=== PATIENT | female | born 1990 | race Caucasian/White ===

== ENCOUNTER 2017-03-01 01:43 | Emergency (ER) | payer MEDICAID ==
[~2017-03-01] VITALS: Ht 154.9 cm; Wt 82.0 kg
[2017-03-01 01:45] VITALS: BP 151/104; PULSE 85; RESP 18; TEMP 97.7; O2SAT 100
[2017-03-01 02:54] LABS: AUTOMATED NEUTROPHIL # 3.2 TH/MM3 (1.8-7.7); BASOPHIL % 0.6 % (0.0-2.0); EOSINOPHIL # 0.3 TH/MM3 (0-0.4); EOSINOPHIL % 4.2 % (0.0-4.0); HEMATOCRIT 36.7 % (35.0-46.0); HEMO FLAGS DIFF FINAL; LYMPH % 36.2 % (9.0-44.0); LYMPHOCYTE # 2.3 TH/MM3 (1.0-4.8); MEAN CELL VOLUME 90.8 FL (80.0-100.0); MEAN CORPUSCULAR HEMOGLOBIN 32.3 PG (27.0-34.0); MEAN CORPUSCULAR HGB CONC 35.6 % (32.0-36.0); MONO % 7.5 % (0.0-8.0); NEUT % 51.5 % (16.0-70.0); PLATELET COUNT 264 TH/MM3 (150-450); RED BLOOD COUNT 4.04 MIL/MM3 (4.00-5.30); RED CELL DISTRIBUTION WIDTH 12.8 % (11.6-17.2); WHITE BLOOD COUNT 6.3 TH/MM3 (4.0-11.0)
[2017-03-01 03:03] LABS: BLOOD, URINE MOD (NEG); COMMENT (UR) CULT NOT INDICATED; CULTURE IF INDICATED CULT NOT INDICATED; GLUCOSE,URINE NEG (NEG); KETONE, URINE NEG (NEG); MUCUS URINE FEW /lpf (OCC); NITRITE,URINE NEG (NEG); SQUAMOUS EPITHELIAL CELL URINE 7 /hpf (0-5); URINE COLOR YELLOW (YELLW/STRAW)
[2017-03-01 03:21] LABS: ANION GAP 7 MEQ/L (5-15); AST (GOT) 22 U/L (15-37); BICARBONATE 27.2 MEQ/L (21.0-32.0); BLOOD UREA NITROGEN 11 MG/DL (7-18); CHLORIDE 106 MEQ/L (98-107); GLOMERULAR FILTRATION RATE 101 ML/MIN (>89); POTASSIUM 3.8 MEQ/L (3.5-5.1); SODIUM (NA) 140 MEQ/L (136-145)
[2017-03-01] MEDS ORDERED: SODIUM CHLOR 0.9% 1000 ML INJ 1,000 ML IV SCH (03:23)
[2017-03-01 03:24] LABS: ALKALINE PHOSPHATASE 99 U/L (45-117); ALT (GPT) 44 U/L (10-53); TOTAL BILIRUBIN ADULT 0.3 MG/DL (0.2-1.0)
[2017-03-01] MEDS ORDERED: ONDANSETRON HCL 4 MG/2 ML VIAL IVP ONE (03:30)
[2017-03-01] MEDS ORDERED: SODIUM CHLORIDE 0.9% FLUSH 10 ML FLUSH IV FLUSH PRN (03:30)
[2017-03-01] MEDS ORDERED: MORPHINE SULFATE 4 MG/ML INJ IV PUSH ONE (03:30)
--- NOTE | 2017-03-01 03:40 | PD ---
HPI Chief Complaint: Flank/Kidney Pain Time Seen by Provider: 03:18 Travel History International Travel<30 days: No Contact w/Intl Traveler<30days: No Traveled to known affect area: No History of Present Illness HPI Patient is a 26 year old female who presents to ER with c/o of flank pain. Patient reports that she woke up from sleep and began to have left sided flank pain. Reports that she is unable to get comfortable due to her pain. Denies fever/chills. No history of kidney stones in the past PFSH Past Medical History Medical History: Denies Significant Hx Tetanus Vaccination: Never Vaccinated Influenza Vaccination: No ?: Not LMP: TUBAL Tubal Ligation: Yes Past Surgical History Section: Yes (X3) Social History Alcohol Use: No Tobacco Use: No Substance Use: No Allergies-Medications (Allergen,Severity, Reaction): Coded Allergies: Cytotec (Verified Allergy, Severe, SEIZURES FEVER, 03/01/17) Reported Meds & Prescriptions Reported Meds & Active Scripts Active Flomax (Tamsulosin HCl) 0.4 Mg Cap 0.4 Mg PO HS Percocet (Oxycodone-Acetaminophen) 5-325 mg Tab 1-2 Tab PO Q6H PRN Ibuprofen 600 Mg Tab 600 Mg PO Q6H PRN Review of Systems General / Constitutional: No: Fever Eyes: No: Visual changes HENT: No: Headaches Cardiovascular: No: Chest Pain or Discomfort Respiratory: No: Shortness of Breath Gastrointestinal: Positive: Nausea, Vomiting, No: Abdominal Pain Genitourinary: Positive: Flank Pain, No: Dysuria Musculoskeletal: No: Pain Skin: No Rash Neurologic: No: Weakness Psychiatric: No: Depression Endocrine: No: Polydipsia Hematologic/Lymphatic: No: Easy Bruising Physical Exam Narrative GENERAL: Moderate distress SKIN: Focused skin assessment warm/dry. HEAD: Atraumatic. Normocephalic. EYES: Pupils equal and round. No scleral icterus. No injection or drainage. ENT: No nasal bleeding or discharge. Mucous membranes pink and moist. NECK: Trachea midline. No JVD. CARDIOVASCULAR: Regular rate and rhythm. No murmur appreciated. RESPIRATORY: No accessory muscle use. Clear to auscultation. Breath sounds equal bilaterally. GASTROINTESTINAL: Abdomen soft, non-tender, nondistended. Patient with left- sided flank pain MUSCULOSKELETAL: No obvious deformities. No clubbing. No cyanosis. No edema. NEUROLOGICAL: Awake and alert. . Normal speech. PSYCHIATRIC: Appropriate mood and affect; insight and judgment normal. Data Data Last Documented VS Vital Signs Date Time Temp Pulse Resp B/P Pulse Ox O2 Delivery O2 Flow Rate FiO2 03/01/17 01:45 97.7 85 18 151/104 100 Room Air Orders Urinalysis - C+S If Indicated (03/01/17 01:48) Complete Blood Count With Diff (03/01/17 02:40) Comprehensive Metabolic Panel (03/01/17 02:40) Iv Access Insert/Monitor (03/01/17 02:40) Oxygen Administration (03/01/17 02:40) Oximetry (03/01/17 02:40) Lipase (03/01/17 02:40) Ct Abd/Pel W/O Iv Contrast (03/01/17 03:23) Morphine Inj (Morphine Inj) (03/01/17 03:30) Ondansetron Inj (Zofran Inj) (03/01/17 03:30) Sodium Chlor 0.9% 1000 Ml Inj (Ns 1000 M (03/01/17 03:23) Sodium Chloride 0.9% Flush (Ns Flush) (03/01/17 03:30) Ketorolac Inj (Toradol Inj) (03/01/17 04:45) Strain Urine PRN (03/01/17 05:47) Tamsulosin (Flomax) (03/01/17 06:00) Labs Laboratory Tests Test 03/01/17 03/01/17 02:30 02:40 Urine Color YELLOW Urine Turbidity CLOUDY Urine pH 8.0 Urine Specific [place] 1.018 Urine Protein TRACE mg/dL Urine Glucose (UA) NEG mg/dL Urine Ketones NEG mg/dL Urine Occult Blood MOD Urine Nitrite NEG Urine Bilirubin NEG Urine Urobilinogen LESS THAN 2.0 MG/DL Urine Leukocyte Esterase NEG Urine RBC /hpf Urine WBC 1 /hpf Urine Squamous Epithelial 7 /hpf Cells Urine Amorphous Sediment OCC Urine Mucus FEW /lpf Microscopic Urinalysis Comment CULT NOT INDICATED White Blood Count 6.3 TH/MM3 Red Blood Count 4.04 MIL/MM3 Hemoglobin 13.1 GM/DL Hematocrit 36.7 % Mean Corpuscular Volume 90.8 FL Mean Corpuscular Hemoglobin 32.3 PG Mean Corpuscular Hemoglobin 35.6 % Concent Red Cell Distribution Width 12.8 % Platelet Count 264 TH/MM3 Mean Platelet Volume 7.2 FL Neutrophils (%) (Auto) 51.5 % Lymphocytes (%) (Auto) 36.2 % Monocytes (%) (Auto) 7.5 % Eosinophils (%) (Auto) 4.2 % Basophils (%) (Auto) 0.6 % Neutrophils # (Auto) 3.2 TH/MM3 Lymphocytes # (Auto) 2.3 TH/MM3 Monocytes # (Auto) 0.5 TH/MM3 Eosinophils # (Auto) 0.3 TH/MM3 Basophils # (Auto) 0.0 TH/MM3 CBC Comment DIFF FINAL Differential Comment Sodium Level 140 MEQ/L Potassium Level 3.8 MEQ/L Chloride Level 106 MEQ/L Carbon Dioxide Level 27.2 MEQ/L Anion Gap 7 MEQ/L Blood Urea Nitrogen 11 MG/DL Creatinine 0.69 MG/DL Estimat Glomerular Filtration 101 ML/MIN Rate Random Glucose 93 MG/DL Calcium Level 9.2 MG/DL Total Bilirubin 0.3 MG/DL Aspartate Amino Transf 22 U/L (AST/SGOT) Alanine Aminotransferase 44 U/L (ALT/SGPT) Alkaline Phosphatase 99 U/L Total Protein 7.3 GM/DL Albumin 3.8 GM/DL Lipase 192 U/L MDM Medical Decision Making Medical Screen Exam Complete: Yes Emergency Medical Condition: Yes Interpretation(s) Vital Signs Date Time Temp Pulse Resp B/P Pulse Ox O2 Delivery O2 Flow Rate FiO2 03/01/17 01:45 97.7 85 18 151/104 100 Room Air Laboratory Tests Test 03/01/17 03/01/17 02:30 02:40 Urine Color YELLOW (YELLW/STRAW) Urine Turbidity CLOUDY (CLEAR) Urine pH 8.0 (5.0-8.5) Urine Specific [place] 1.018 (1.002-1.035) Urine Protein TRACE mg/dL (NEG-TRACE) Urine Glucose (UA) NEG mg/dL (NEG) Urine Ketones NEG mg/dL (NEG) Urine Occult Blood MOD (NEG) Urine Nitrite NEG (NEG) Urine Bilirubin NEG (NEG) Urine Urobilinogen LESS THAN 2.0 MG/DL (LESS THAN 2.0) Urine Leukocyte Esterase NEG (NEG) Urine RBC /hpf (0-3) Urine WBC 1 /hpf (0-5) Urine Squamous Epithelial 7 /hpf (0-5) Cells Urine Amorphous Sediment OCC Urine Mucus FEW /lpf (OCC) Microscopic Urinalysis Comment CULT NOT INDICATED White Blood Count 6.3 TH/MM3 (4.0-11.0) Red Blood Count 4.04 MIL/MM3 (4.00-5.30) Hemoglobin 13.1 GM/DL (11.6-15.3) Hematocrit 36.7 % (35.0-46.0) Mean Corpuscular Volume 90.8 FL (80.0-100.0) Mean Corpuscular Hemoglobin 32.3 PG (27.0-34.0) Mean Corpuscular Hemoglobin 35.6 % Concent (32.0-36.0) Red Cell Distribution Width 12.8 % (11.6-17.2) Platelet Count 264 TH/MM3 (150-450) Mean Platelet Volume 7.2 FL (7.0-11.0) Neutrophils (%) (Auto) 51.5 % (16.0-70.0) Lymphocytes (%) (Auto) 36.2 % (9.0-44.0) Monocytes (%) (Auto) 7.5 % (0.0-8.0) Eosinophils (%) (Auto) 4.2 % (0.0-4.0) Basophils (%) (Auto) 0.6 % (0.0-2.0) Neutrophils # (Auto) 3.2 TH/MM3 (1.8-7.7) Lymphocytes # (Auto) 2.3 TH/MM3 (1.0-4.8) Monocytes # (Auto) 0.5 TH/MM3 (0-0.9) Eosinophils # (Auto) 0.3 TH/MM3 (0-0.4) Basophils # (Auto) 0.0 TH/MM3 (0-0.2) CBC Comment DIFF FINAL Differential Comment Sodium Level 140 MEQ/L (136-145) Potassium Level 3.8 MEQ/L (3.5-5.1) Chloride Level 106 MEQ/L (98-107) Carbon Dioxide Level 27.2 MEQ/L (21.0-32.0) Anion Gap 7 MEQ/L (5-15) Blood Urea Nitrogen 11 MG/DL (7-18) Creatinine 0.69 MG/DL (0.50-1.00) Estimat Glomerular Filtration 101 ML/MIN Rate (>89) Random Glucose 93 MG/DL (74-106) Calcium Level 9.2 MG/DL (8.5-10.1) Total Bilirubin 0.3 MG/DL (0.2-1.0) Aspartate Amino Transf 22 U/L (15-37) (AST/SGOT) Alanine Aminotransferase 44 U/L (10-53) (ALT/SGPT) Alkaline Phosphatase 99 U/L (45-117) Total Protein 7.3 GM/DL (6.4-8.2) Albumin 3.8 GM/DL (3.4-5.0) Lipase 192 U/L (73-393) Differential Diagnosis Pyelonephritis, kidney stone, cystitis, muscle strain Narrative Course Patient is a 26-year-old female who presents to emergency room with complaints of left-sided flank pain which began around 1:00 AM this morning. Patient with no history of kidney stones in the past. Patient uncomfortable on exam. ct abdomen/pelvis ordered to evaluate for possible kidney stone vs pyelonephritis CBC & BMP Diagram 03/01/17 02:40 Last Impressions Abdomen/Pelvis CT 03/01/17 0323 Signed Impressions: Service Date/Time: February 04:29 - CONCLUSION: 1. Obstructive uropathy on the left secondary to a 5 mm left ureteropelvic junction calculus causing moderate hydronephrosis. 2. 2 nonobstructing left-sided lower pole calculi measuring 3 and 6 mm. 3. Large left ovarian cyst measures 5.4 x 5.2 cm. Followup pelvic sonogram recommended. Eric Gomez MD Patient re-evaluated, patient feeling much better at this time. Reviewed all labs and studies with patient in detail. A copy of her ct was given to her as all incidental findings were reviewed in detail with her. Signs and symptoms of when to return to ER was reviewed with patient in detail. She will strain her urine and will return to ER if she develops fever/chills or worsening symptoms. Diagnosis Primary Impression: Kidney calculus Additional Impressions: Kidney stone on left side Hydronephrosis Qualified Code: Q62.0 - Hydronephrosis with ureteropelvic junction (UPJ) obstruction Hematuria Referrals: Nazario Templeton MD Patient Instructions: General Instructions, Narcotic given in the ED Additional Instructions: Please call urologist first thing in the morning for earliest follow-up appointment Please strain your urine, bring your kidney stone to your doctor's office for workup of stone Please follow-up with cultures from today Return to the emergency room if symptoms progress or worsen or if you develop fevers or chills Do not drive while taking narcotic pain medications Please bring the CT report to your doctor's office for follow up on all findings and incidental studies from today Med/Other Pt SpecificInfo: Prescription(s) given Scripts Tamsulosin (Flomax)0.4 Mg Cap0.4 Mg PO HS #10 CAP Ref 0 Prov:Soraida Poe DO 03/01/17 Oxycodone-Acetaminophen (Percocet)5-325 mg Tab1-2 Tab PO Q6H PRN (PAIN) #15 TAB Ref 0 Prov:Soraida Poe DO 03/01/17 Ibuprofen 600 Mg Deb810 Mg PO Q6H PRN (Pain/Inflammation) #40 TAB Ref 0 Prov:Soraida Poe DO 03/01/17 Disposition: 01 DISCHARGE HOME Condition: Stable Soraida Poe DO Mar 01, 2017 03:40
[2017-03-01] MEDS ORDERED: KETOROLAC TROMETHAMINE 30 MG/ML (IVP) VIAL IV PUSH ONE (04:45)
--- NOTE | 2017-03-01 04:45 | RADRPT ---
EXAM DATE/TIME: 03/01/2017 04:29 [facility] COMPARISON: No previous studies available for comparison. INDICATIONS : Left flank and back pain. ORAL CONTRAST: No oral contrast ingested. RADIATION DOSE: 8.51 CTDIvol (mGy) MEDICAL HISTORY : None SURGICAL HISTORY : Tubal ligation. section. ENCOUNTER: Initial ACUITY: 1 day PAIN SCALE: 6/10 LOCATION: Left flank TECHNIQUE: Volumetric scanning of the abdomen and pelvis was performed. Using automated exposure control and ad justment of the mA and/or kV according to patient size, radiation dose was kept as low as reasonably achievable to obtain optimal diagnostic quality images. FINDINGS: LOWER LUNGS: The visualized lower lungs are clear. LIVER: Homogeneous density without lesion. There is no dilation of the biliary tree. No calcified gallston es. SPLEEN: Normal size without lesion. PANCREAS: Within normal limits. KIDNEYS: Normal in size and shape. There is no mass, stone, or hydronephrosis on the right. Left ureteropelvi c junction obstructing calculus measures 5 mm. This is causes moderate hydronephrosis. There are 2 no nobstructing calculi in the lower pole left kidney measuring 3 and 6 mm.. ADRENAL GLANDS: Within normal limits. VASCULAR: There is no aortic aneurysm. BOWEL/MESENTERY: The stomach, small bowel, and colon demonstrate no acute abnormality. There is no free intraperitone al air or fluid. ABDOMINAL WALL: Within normal limits. RETROPERITONEUM: There is no lymphadenopathy. BLADDER: No wall thickening or mass. REPRODUCTIVE: Left ovarian cyst measures 5.4 x 5.2 cm. Clips in the pelvis likely bilateral tubal ligation. INGUINAL: There is no lymphadenopathy or hernia. MUSCULOSKELETAL: Within normal limits for patient age. CONCLUSION: 1. Obstructive uropathy on the left secondary to a 5 mm left ureteropelvic junction calculus causing moderate hydronephrosis. 2. 2 nonobstructing left-sided lower pole calculi measuring 3 and 6 mm. 3. Large left ovarian cyst measures 5.4 x 5.2 cm. Followup pelvic sonogram recommended. Eric Gomez MD on March 01, 2017 at 4:40 Board Certified Radiologist. This report was verified electronically.
[2017-03-01] MEDS ORDERED: IBUP-232 PO (05:55)
[2017-03-01] MEDS ORDERED: TAMS5CAP PO (05:55)
[2017-03-01] MEDS ORDERED: PERC5TAB12 PO (05:55)
[2017-03-01] MEDS ORDERED: TAMSULOSIN HCL 0.4 MG CAP PO ONE (06:00)
[2017-03-01 06:22] VITALS: BP 142/80
[2017-03-02] MEDS ORDERED: CEPH-460 PO (10:17)
== END 2017-03-01 06:28 | disposition home or self-care (01) ==
LOC: NEPE 01:43
DX: N13.2 Hydronephrosis with renal and ureteral calculous obstruction (principal); R31.9 Hematuria, unspecified; N83.202 Unspecified ovarian cyst, left side
CPT/HCPCS: 74176; 80053; 81001; 83690; 85025; 96374; 96375; 99284; J1885; J2270; J2405; J7030

== ENCOUNTER 2017-03-02 08:14 | Emergency (ER) | payer MEDICAID ==
[~2017-03-02] VITALS: Ht 154.9 cm; Wt 85.0 kg
[~2017-03-02 08:14] MED LIST: IBUP-232 PO; PERC5TAB12 PO; TAMS5CAP PO
[2017-03-02 08:15] VITALS: BP 129/96; PULSE 110; RESP 16; TEMP 99.5; O2SAT 98
--- NOTE | 2017-03-02 09:07 | PD ---
HPI Chief Complaint: Flank/Kidney Pain Time Seen by Provider: 09:00 Travel History International Travel<30 days: No Contact w/Intl Traveler<30days: No Traveled to known affect area: No History of Present Illness HPI This is a 26-year-old female who presents to the emergency department with 2 days of left flank pain, intermittent, worse with walking, improved with rest, sharp and stabbing, with one episode of vomiting yesterday. She was seen in the emergency department yesterday and diagnosed with an obstructing kidney stone. She was discharged on pain control but returns today because she spiked a temperature to 100.5 and has had some fevers and chills. Her doctor yesterday told her to return to the emergency department if she developed fever. PFSH Past Medical History Diminished Hearing: No Genitourinary: Yes Kidney Stones: Yes Tetanus Vaccination: > 5 Years Influenza Vaccination: No ?: Not LMP: JANUARY 2017 Tubal Ligation: Yes Past Surgical History Section: Yes (X3) Gynecologic Surgery: Yes Social History Alcohol Use: No Tobacco Use: No Substance Use: No Allergies-Medications (Allergen,Severity, Reaction): Coded Allergies: Cytotec (Verified Allergy, Severe, SEIZURES FEVER, 03/02/17) Reported Meds & Prescriptions Reported Meds & Active Scripts Active Flomax (Tamsulosin HCl) 0.4 Mg Cap 0.4 Mg PO HS Percocet (Oxycodone-Acetaminophen) 5-325 mg Tab 1-2 Tab PO Q6H PRN Ibuprofen 600 Mg Tab 600 Mg PO Q6H PRN Review of Systems Except as stated in HPI: all other systems reviewed are Neg Physical Exam Narrative GENERAL:Well appearing, no acute distress SKIN: Focused skin assessment warm and dry. HEAD: Atraumatic. Normocephalic. EYES: Pupils equal and round. No injection or drainage. ENT: Moist mucous membranes NECK: Trachea midline. CARDIOVASCULAR: Regular rate and rhythm. No murmur appreciated. RESPIRATORY: Clear to auscultation. Breath sounds equal bilaterally. GASTROINTESTINAL: Abdomen soft, non-tender, nondistended. MUSCULOSKELETAL: No obvious deformities. NEUROLOGICAL: Awake and alert. No obvious cranial nerve deficits. Moving all extremities. PSYCHIATRIC: Appropriate mood and affect; insight and judgment normal. Data Data Last Documented VS Vital Signs Date Time Temp Pulse Resp B/P Pulse Ox O2 Delivery O2 Flow Rate FiO2 03/02/17 09:27 17 03/02/17 08:15 99.5 110 129/96 98 Room Air Orders Complete Blood Count With Diff (03/02/17 09:07) Basic Metabolic Panel (Bmp) (03/02/17 09:07) Urinalysis - C+S If Indicated (03/02/17 09:07) ^ Insert Iv (03/02/17 09:07) Morphine Inj (Morphine Inj) (03/02/17 09:15) Ondansetron Inj (Zofran Inj) (03/02/17 09:15) Sodium Chlor 0.9% 1000 Ml Inj (Ns 1000 M (03/02/17 09:15) Lactic Acid (03/02/17 09:07) Labs Laboratory Tests Test 03/02/17 09:00 White Blood Count 8.9 TH/MM3 Red Blood Count 3.73 MIL/MM3 Hemoglobin 11.9 GM/DL Hematocrit 34.3 % Mean Corpuscular Volume 92.1 FL Mean Corpuscular Hemoglobin 32.0 PG Mean Corpuscular Hemoglobin 34.7 % Concent Red Cell Distribution Width 12.7 % Platelet Count 222 TH/MM3 Mean Platelet Volume 7.6 FL Neutrophils (%) (Auto) 79.0 % Lymphocytes (%) (Auto) 13.8 % Monocytes (%) (Auto) 6.1 % Eosinophils (%) (Auto) 0.8 % Basophils (%) (Auto) 0.3 % Neutrophils # (Auto) 7.0 TH/MM3 Lymphocytes # (Auto) 1.2 TH/MM3 Monocytes # (Auto) 0.5 TH/MM3 Eosinophils # (Auto) 0.1 TH/MM3 Basophils # (Auto) 0.0 TH/MM3 CBC Comment DIFF FINAL Differential Comment Urine Color LIGHT-YELLOW Urine Turbidity CLEAR Urine pH 7.5 Urine Specific [place] 1.005 Urine Protein NEG mg/dL Urine Glucose (UA) NEG mg/dL Urine Ketones NEG mg/dL Urine Occult Blood NEG Urine Nitrite NEG Urine Bilirubin NEG Urine Urobilinogen LESS THAN 2.0 MG/DL Urine Leukocyte Esterase NEG Urine RBC 2 /hpf Urine WBC 2 /hpf Urine Squamous Epithelial 1 /hpf Cells Urine Bacteria OCC /hpf Microscopic Urinalysis Comment CULT NOT INDICATED Sodium Level 139 MEQ/L Potassium Level 3.9 MEQ/L Chloride Level 107 MEQ/L Carbon Dioxide Level 25.7 MEQ/L Anion Gap 6 MEQ/L Blood Urea Nitrogen 6 MG/DL Creatinine 0.64 MG/DL Estimat Glomerular Filtration 110 ML/MIN Rate Random Glucose 87 MG/DL Lactic Acid Level 1.4 mmol/L Calcium Level 8.8 MG/DL [facility] Medical Decision Making Medical Screen Exam Complete: Yes Emergency Medical Condition: Yes Interpretation(s) temperature is 99.5, tachycardic no leukocytosis electrolytes within normal limits urinalysis negative for infection Differential Diagnosis Infected stone, pyelonephritis, obstructive uropathy, viral syndrome Narrative Course This is a 18-year-old female who presents to the emergency department having been diagnosed with an obstructing stone yesterday in the emergency department. She has a 5 mm stone at the left UPJ. Yesterday she had a large amount of blood in her urine. She returns today because she had a fever to 100.5 at home. She is having very minimal pain, looks quite comfortable and is not vomiting. She was given a dose of IV pain medication, antiemetics and IV fluids. She has no leukocytosis, slightly more neutrophils than yesterday, and her urinalysis demonstrates no infection or blood. She would prefer not to stay in the hospital. I really doubt that this is an infected stone at this time. It's possible she had a low-grade fever from another etiology like a viral syndrome. I did express the urgency of infected stones and if she develops worsening symptoms or high fevers she should return immediately to the hospital. We agreed to start her on a course of Keflex empirically just as a precaution. Diagnosis Primary Impression: Kidney stone on left side Patient Instructions: General Instructions Additional Instructions: If you develop severe pain, inability to eat or drink, or fever return to the emergency department. Use a strainer to try to catch your stone. Follow up with urology as soon as possible. Med/Other Pt SpecificInfo: Prescription(s) given Scripts Cephalexin (Keflex)500 Mg Mah016 Mg PO Q12H 7 Days Ref 0 Prov:Lucia Murcia MD 03/02/17 Disposition: 01 DISCHARGE HOME Condition: Stable Lucia Murcia MD Mar 02, 2017 09:07
[2017-03-02] MEDS ORDERED: MORPHINE SULFATE 4 MG/ML INJ IV PUSH ONE (09:15)
[2017-03-02] MEDS ORDERED: SODIUM CHLOR 0.9% 1000 ML INJ 1,000 ML IV ONE (09:15)
[2017-03-02] MEDS ORDERED: ONDANSETRON HCL 4 MG/2 ML VIAL IV PUSH ONE (09:15)
[2017-03-02 09:27] VITALS: RESP 17
[2017-03-02 09:37] LABS: BASOPHIL % 0.3 % (0.0-2.0); BICARBONATE 25.7 MEQ/L (21.0-32.0); EOSINOPHIL # 0.1 TH/MM3 (0-0.4); EOSINOPHIL % 0.8 % (0.0-4.0); HEMATOCRIT 34.3 % (35.0-46.0); HEMO FLAGS DIFF FINAL; LYMPH % 13.8 % (9.0-44.0); LYMPHOCYTE # 1.2 TH/MM3 (1.0-4.8); MEAN CELL VOLUME 92.1 FL (80.0-100.0); MEAN CORPUSCULAR HGB CONC 34.7 % (32.0-36.0); MONO % 6.1 % (0.0-8.0); PLATELET COUNT 222 TH/MM3 (150-450); POTASSIUM 3.9 MEQ/L (3.5-5.1); RED BLOOD COUNT 3.73 MIL/MM3 (4.00-5.30); RED CELL DISTRIBUTION WIDTH 12.7 % (11.6-17.2); WHITE BLOOD COUNT 8.9 TH/MM3 (4.0-11.0)
[2017-03-02 09:50] LABS: BACTERIA, URINE OCC /hpf; BLOOD, URINE NEG (NEG); GLUCOSE,URINE NEG (NEG); KETONE, URINE NEG (NEG); NITRITE,URINE NEG (NEG); PH, URINE 7.5 (5.0-8.5); SQUAMOUS EPITHELIAL CELL URINE 1 /hpf (0-5); URINE COLOR LIGHT-YELLOW (YELLW/STRAW)
[2017-03-02 09:53] LABS: COMMENT (UR) CULT NOT INDICATED; CULTURE IF INDICATED CULT NOT INDICATED
[2017-03-02] MEDS ORDERED: CEPH-460 PO (10:17)
== END 2017-03-02 10:33 | disposition home or self-care (01) ==
LOC: NEPD 08:14
DX: N20.0 Calculus of kidney (principal); R50.9 Fever, unspecified
CPT/HCPCS: 80048; 81001; 83605; 85025; 96361; 96374; 96375; 99283; J2270; J2405; J7030

== ENCOUNTER 2017-03-02 15:24 | Emergency (ER) | payer MEDICAID ==
[~2017-03-02] VITALS: Ht 154.9 cm; Wt 80.0 kg
[~2017-03-02 15:24] MED LIST changes: +CEPH-460 PO
[2017-03-02 15:26] VITALS: BP 136/80; TEMP 103; O2SAT 97
--- NOTE | 2017-03-02 15:41 | PD ---
Physical Exam Date Seen by Provider: Mar 02, 2017 Time Seen by Provider: 15:41 Narrative 26 year old female presents to the emergency department for evaluation of left kidneys stones. Patient presents with fever, left flank pain. She states she took Ibuprofen 200 mg at 3 pm. Patient was seen earlier this morning, but is worsening. Patient is given Tylenol 650 mg PO in triage for fever. Vital signs reviewed. Patient is febrile and tachycardic. Patient awaiting bed placement. Data Data Last Documented VS Orders Acetaminophen (Tylenol) (03/02/17 15:45) [facility] Supervised Visit with JONAS: No Ingrid Eng Mar 02, 2017 15:41 Ingrid Eng Mar 02, 2017 15:41
[2017-03-02] MEDS ORDERED: ACETAMINOPHEN 325 MG TAB PO ONE ×2 (15:45→17:30)
[2017-03-02] MEDS ORDERED: CEFEPIME INJ 2,000 MG in SODIUM CHLORIDE 0.9% INJ 100 ML IV STA (17:20)
[2017-03-02] MEDS ORDERED: VANCOMYCIN INJ 1,000 MG in SODIUM CHLOR 0.9% 250 ML INJ 250 ML IV STA (17:20)
[2017-03-02] MEDS ORDERED: SODIUM CHLOR 0.9% 1000 ML INJ 400 ML IV ONE (17:20)
[2017-03-02] MEDS ORDERED: SODIUM CHLOR 0.9% 1000 ML INJ 1,000 ML IV ONE ×2 (17:20)
[2017-03-02] MEDS ORDERED: KETOROLAC TROMETHAMINE 30 MG/ML (IVP) VIAL IV PUSH ONE (17:30)
[2017-03-02] MEDS ORDERED: ONDANSETRON HCL 4 MG/2 ML VIAL IV ONE (17:30)
--- NOTE | 2017-03-02 17:54 | RADRPT ---
EXAM DATE/TIME: 03/02/2017 17:25 [facility] COMPARISON: CT ABDOMEN & PELVIS W/O CONTRAST, March 01, 2017, 4:29. INDICATIONS : Fever starting today MEDICAL HISTORY : None. SURGICAL HISTORY : None. ENCOUNTER: Initial ACUITY: 1 day PAIN SCORE: Non-responsive. LOCATION: Bilateral chest FINDINGS: A single view of the chest demonstrates the lungs to be symmetrically aerated without evidence of mas s, infiltrate or effusion. The cardiomediastinal contours are unremarkable. Osseous structures are intact. CONCLUSION: No acute disease. Alejandro Charlton MD on March 02, 2017 at 17:52 Board Certified Radiologist. This report was verified electronically.
[2017-03-02 17:56] VITALS: BP 105/59; PULSE 105; RESP 16; O2SAT 98
--- NOTE | 2017-03-02 18:05 | PD ---
HPI Chief Complaint: Fever Time Seen by Provider: 17:13 Travel History International Travel<30 days: No Contact w/Intl Traveler<30days: No Traveled to known affect area: No History of Present Illness HPI The patient is a 26-year-old female who presents emergency department for fever. The patient was evaluated in the emergency department several days ago for left flank pain. The patient was diagnosed with nephrolithiasis at that time. The patient then developed fever earlier today and was seen in the emergency department this morning. The patient was discharged home and advised to return if she developed a fever. The patient developed a fever 103 at home assisted with mild left flank pain. She denies any current nausea, vomiting, diarrhea, or change in bowel habits. She denies any current dysuria, frequency , urgency, or vaginal discharge. The patient denies any cough and cold symptoms including nasal congestion, sore throat, or cough. The patient has no noticeable source of fever. She denies any headache or posterior neck pain. The patient's last menstrual cycle was mid January, she denies . The patient recently moved to the local area from [place] and does not have a local primary physician. The patient denies any history of IVDA. PFSH Past Medical History Diminished Hearing: No Genitourinary: Yes Kidney Stones: Yes ?: Not Tubal Ligation: Yes Past Surgical History Section: Yes (X3) Gynecologic Surgery: Yes Social History Alcohol Use: No Tobacco Use: No Substance Use: No Allergies-Medications (Allergen,Severity, Reaction): Coded Allergies: Cytotec (Verified Allergy, Severe, SEIZURES FEVER, 03/02/17) Reported Meds & Prescriptions Reported Meds & Active Scripts Active Keflex (Cephalexin) 500 Mg Cap 500 Mg PO Q12H 7 Days Flomax (Tamsulosin HCl) 0.4 Mg Cap 0.4 Mg PO HS Percocet (Oxycodone-Acetaminophen) 5-325 mg Tab 1-2 Tab PO Q6H PRN Ibuprofen 600 Mg Tab 600 Mg PO Q6H PRN Review of Systems Except as stated in HPI: all other systems reviewed are Neg General / Constitutional: Positive: Fever Cardiovascular: No: Chest Pain or Discomfort Respiratory: No: Shortness of Breath Gastrointestinal: No: Nausea, Vomiting, Diarrhea, Abdominal Pain Genitourinary: Positive: Flank Pain, No: Dysuria, Discharge, Vaginal Bleeding Musculoskeletal: No: Myalgias, Arthralgias Skin: No Rash Physical Exam Narrative GENERAL: Awake, alert, pleasant 26-year-old female who appears her stated age and is in no acute respiratory distress. SKIN: Focused skin assessment warm/dry. HEAD: Atraumatic. Normocephalic. EYES: Pupils equal and round. No scleral icterus. No injection or drainage. ENT: No nasal bleeding or discharge. No erythema or exudate noted. NECK: Trachea midline. No JVD. CARDIOVASCULAR: Regular, tachycardic with a heart rate in the 140s. RESPIRATORY: No accessory muscle use. Clear to auscultation. Breath sounds equal bilaterally. GASTROINTESTINAL: Abdomen soft, minimal left lower quadrant/flank pain. Back: No CVA tenderness. MUSCULOSKELETAL: No obvious deformities. No clubbing. No cyanosis. No edema. NEUROLOGICAL: Awake and alert. No obvious cranial nerve deficits. Motor grossly within normal limits. Normal speech. PSYCHIATRIC: Appropriate mood and affect; insight and judgment normal. Data Data Last Documented VS Vital Signs Date Time Temp Pulse Resp B/P Pulse Ox O2 Delivery O2 Flow Rate FiO2 03/02/17 21:27 104 18 115/81 100 03/02/17 17:56 Room Air 03/02/17 15:26 103.0 Orders Acetaminophen (Tylenol) (03/02/17 15:45) Electrocardiogram (03/02/17 17:20) Complete Blood Count With Diff (03/02/17 17:20) Comprehensive Metabolic Panel (03/02/17 17:20) Prothrombin Time / Inr (Pt) (03/02/17 17:20) Act Partial Throm Time (Ptt) (03/02/17 17:20) Lactic Acid Sepsis Protocol (03/02/17 17:20) Magnesium (Mg) (03/02/17 17:20) Ckmb (Isoenzyme) Profile (03/02/17 17:20) Urinalysis - C+S If Indicated (03/02/17 17:20) Influenzae A/B Antigen (03/02/17 17:20) Blood Culture (03/02/17 17:20) Chest, Single Ap (03/02/17 17:20) Blood Glucose (03/02/17 17:20) Ecg Monitoring (03/02/17 17:20) Iv Access Insert/Monitor (03/02/17 17:20) Oximetry (03/02/17 17:20) Oxygen Administration (03/02/17 17:20) Acetaminophen (Tylenol) (03/02/17 17:30) Ondansetron Inj (Zofran Inj) (03/02/17 17:30) Ct Abd/Pel W Iv Contrast(Rout) (03/02/17 17:20) Cefepime Inj (Maxipime Inj) (03/02/17 17:20) Vancomycin Inj (Vancomycin Inj) (03/02/17 17:20) Sodium Chlor 0.9% 1000 Ml Inj (Ns 1000 M (03/02/17 17:20) Sodium Chlor 0.9% 1000 Ml Inj (Ns 1000 M (03/02/17 17:20) Sodium Chlor 0.9% 1000 Ml Inj (Ns 1000 M (03/02/17 17:20) Ketorolac Inj (Toradol Inj) (03/02/17 17:30) Ed Urine Pregnancytest Poc (03/02/17 17:25) Urine Culture (03/02/17 17:38) Iohexol 350 Inj (Omnipaque 350 Inj) (03/02/17 18:44) CKMB (03/02/17 17:00) CKMB% (03/02/17 17:00) Labs Laboratory Tests Test 03/02/17 03/02/17 03/02/17 03/02/17 17:00 17:38 18:10 18:40 Sodium Level 137 MEQ/L Potassium Level 4.2 MEQ/L Chloride Level 105 MEQ/L Carbon Dioxide Level 26.7 MEQ/L Anion Gap 5 MEQ/L Blood Urea Nitrogen 7 MG/DL Creatinine 0.71 MG/DL Estimat Glomerular Filtration 98 ML/MIN Rate Random Glucose 82 MG/DL Calcium Level 9.2 MG/DL Magnesium Level 2.0 MG/DL Total Bilirubin 0.5 MG/DL Aspartate Amino Transf 44 U/L (AST/SGOT) Alanine Aminotransferase 41 U/L (ALT/SGPT) Alkaline Phosphatase 113 U/L Total Creatine Kinase 133 U/L Creatine Kinase MB LESS THAN 0.5 NG/ML Total Protein 7.6 GM/DL Albumin 3.7 GM/DL Urine Color LIGHT-YELLOW Urine Turbidity CLEAR Urine pH 7.0 Urine Specific [place] 1.005 Urine Protein NEG mg/dL Urine Glucose (UA) NEG mg/dL Urine Ketones NEG mg/dL Urine Occult Blood NEG Urine Nitrite NEG Urine Bilirubin NEG Urine Urobilinogen LESS THAN 2.0 MG/DL Urine Leukocyte Esterase NEG Urine WBC 1 /hpf Urine Squamous Epithelial 1 /hpf Cells Urine Bacteria OCC /hpf Microscopic Urinalysis Comment CATH-CULTURE IND Lactic Acid Level 0.8 mmol/L White Blood Count 9.7 TH/MM3 Red Blood Count 3.57 MIL/MM3 Hemoglobin 11.1 GM/DL Hematocrit 33.1 % Mean Corpuscular Volume 92.8 FL Mean Corpuscular Hemoglobin 31.2 PG Mean Corpuscular Hemoglobin 33.6 % Concent Red Cell Distribution Width 12.5 % Platelet Count 211 TH/MM3 Mean Platelet Volume 7.4 FL Neutrophils (%) (Auto) 81.5 % Lymphocytes (%) (Auto) 11.7 % Monocytes (%) (Auto) 6.2 % Eosinophils (%) (Auto) 0.3 % Basophils (%) (Auto) 0.3 % Neutrophils # (Auto) 7.9 TH/MM3 Lymphocytes # (Auto) 1.1 TH/MM3 Monocytes # (Auto) 0.6 TH/MM3 Eosinophils # (Auto) 0.0 TH/MM3 Basophils # (Auto) 0.0 TH/MM3 CBC Comment DIFF FINAL Differential Comment Prothrombin Time 11.5 SEC Prothromb Time International 1.0 RATIO Ratio Activated Partial 30.1 SEC Thromboplast Time MDM Medical Decision Making Medical Screen Exam Complete: Yes Emergency Medical Condition: Yes Medical Record Reviewed: Yes Interpretation(s) EKG reveals normal sinus rhythm with a rate in 91. No ischemic changes or ectopy noted. Date/Time Procedure Status Source Growth 03/02/17 17:38 Urine Culture Received Urine Clean Catch Pending 03/02/17 17:40 Influenza Types A,B Antigen (ADLEITA) - Final Complete Nasal Aspirate NEGATIVE FOR FLU A AND B ANTIGEN.... 03/02/17 18:00 Aerobic Blood Culture Received Blood Peripheral Pending 03/02/17 18:00 Anaerobic Blood Culture Received Blood Peripheral Pending 03/02/17 18:10 Aerobic Blood Culture Received Blood Peripheral Pending 03/02/17 18:10 Anaerobic Blood Culture Received Blood Peripheral Pending Differential Diagnosis Differential diagnosis includes infected kidney stone, nephrolithiasis, hydronephrosis, perinephric abscess, cholecystitis, influenza, septicemia, viral syndrome, PID. Narrative Course IV was established, labs are drawn and sent, and the patient was placed on cardiac telemetry monitoring and continuous pulse oximetry monitoring. EKG was ordered and interpreted. UA was sent to lab and bedside test was obtained, which was negative. The patient meets sepsis criteria, therefore, lactic acid and blood cultures were sent to lab. Repeat CT of the abdomen and pelvis with IV contrast was ordered as the patient has no other obvious source of infection but is known to have a kidney stone on the left aspect. The patient was also administered cefepime 2 g intravenously. Patient was administered Toradol, Zofran, Tylenol, and IV fluids. UA was negative. Influenza screen was negative. The patient was signed out to the oncoming physician at [address] and laboratory evaluation pending. If the patient does have a perinephric abscess or straining consistent with pyelonephritis, patient may need admission as she does have a kidney stone in the left aspect. Sepsis Criteria SIRS Criteria (2 or more): Temp > 100.9 or < 96.8, Heart rate over 90 Criteria Outcome: Meets SIRS criteria Diagnosis Primary Impression: Fever Qualified Code: R50.9 - Fever, unspecified fever cause Condition: Stable Jamie Andino MD Mar 02, 2017 18:05
[2017-03-02 18:22] LABS: BACTERIA, URINE OCC /hpf; BLOOD, URINE NEG (NEG); GLUCOSE,URINE NEG (NEG); KETONE, URINE NEG (NEG); NITRITE,URINE NEG (NEG); SQUAMOUS EPITHELIAL CELL URINE 1 /hpf (0-5); URINE COLOR LIGHT-YELLOW (YELLW/STRAW)
[2017-03-02 18:23] LABS: COMMENT (UR) CATH-CULTURE IND; CULTURE IF INDICATED CATH CULTURE IND
[2017-03-02] MEDS ORDERED: IOHEXOL 350 MG/ML 10 ML VIAL (for RAD DIAG) IV ONE (18:44)
--- NOTE | 2017-03-02 19:05 | RADRPT ---
EXAM DATE/TIME: 03/02/2017 18:44 [facility] COMPARISON: CT ABDOMEN & PELVIS W/O CONTRAST, March 01, 2017, 4:29. INDICATIONS : Left flank pain with known renal stone; fever and increased heart rate. IV CONTRAST: 75 cc Omnipaque 350 (iohexol) IV ORAL CONTRAST: No oral contrast ingested. RADIATION DOSE: 12.56 CTDIvol (mGy) MEDICAL HISTORY : Renal calculi. SURGICAL HISTORY : section. Tubal ligation. ENCOUNTER: Initial ACUITY: 1 day PAIN SCALE: 7/10 LOCATION: Left flank Abdomen/pelvis TECHNIQUE: Volumetric scanning of the abdomen and pelvis was performed. Using automated exposure control and ad justment of the mA and/or kV according to patient size, radiation dose was kept as low as reasonably achievable to obtain optimal diagnostic quality images. FINDINGS: LOWER LUNGS: The visualized lower lungs are clear. LIVER: Homogeneous density without lesion. There is no dilation of the biliary tree. No calcified gallston es. SPLEEN: Normal size without lesion. PANCREAS: Within normal limits. KIDNEYS: The right kidney remains normal. There is persistent mild left hydronephrosis. Couple stable lower po le collecting system nonobstructing stones are present. A small lower pole cyst is noted. There has b een interval passage of a ureteral stone. ADRENAL GLANDS: Within normal limits. VASCULAR: There is no aortic aneurysm. BOWEL/MESENTERY: The stomach, small bowel, and colon demonstrate no acute abnormality. There is no free intraperitone al air or fluid. ABDOMINAL WALL: Within normal limits. RETROPERITONEUM: There is no lymphadenopathy. BLADDER: No wall thickening or mass. REPRODUCTIVE: Slight interval shrinkage of a left ovarian cyst, now just over 5 cm. Clips from previous tubal ligat ion. No free pelvic fluid. INGUINAL: There is no lymphadenopathy or hernia. MUSCULOSKELETAL: Within normal limits for patient age. CONCLUSION: Interval passage of a left ureteral stone, however persistent mild left hydronephrosis. 2 small stone s remain in the lower pole collecting system. No new acute findings. Alejandro Charlton MD on March 02, 2017 at 18:59 Board Certified Radiologist. This report was verified electronically.
[2017-03-02 19:08] LABS: ANION GAP 5 MEQ/L (5-15); AST (GOT) 44 U/L (15-37); BICARBONATE 26.7 MEQ/L (21.0-32.0); BLOOD UREA NITROGEN 7 MG/DL (7-18); CHLORIDE 105 MEQ/L (98-107); GLOMERULAR FILTRATION RATE 98 ML/MIN (>89); SODIUM (NA) 137 MEQ/L (136-145)
[2017-03-02 19:09] LABS: POTASSIUM 4.2 MEQ/L (3.5-5.1)
[2017-03-02 19:12] LABS: ALKALINE PHOSPHATASE 113 U/L (45-117); ALT (GPT) 41 U/L (10-53); CREATINE KINASE 133 U/L (26-192); TOTAL BILIRUBIN ADULT 0.5 MG/DL (0.2-1.0)
[2017-03-02 19:26] LABS: AUTOMATED NEUTROPHIL # 7.9 TH/MM3 (1.8-7.7); BASOPHIL % 0.3 % (0.0-2.0); EOSINOPHIL % 0.3 % (0.0-4.0); HEMATOCRIT 33.1 % (35.0-46.0); HEMO FLAGS DIFF FINAL; LYMPH % 11.7 % (9.0-44.0); LYMPHOCYTE # 1.1 TH/MM3 (1.0-4.8); MEAN CELL VOLUME 92.8 FL (80.0-100.0); MEAN CORPUSCULAR HEMOGLOBIN 31.2 PG (27.0-34.0); MEAN CORPUSCULAR HGB CONC 33.6 % (32.0-36.0); MONO % 6.2 % (0.0-8.0); NEUT % 81.5 % (16.0-70.0); PLATELET COUNT 211 TH/MM3 (150-450); RED BLOOD COUNT 3.57 MIL/MM3 (4.00-5.30); RED CELL DISTRIBUTION WIDTH 12.5 % (11.6-17.2); WHITE BLOOD COUNT 9.7 TH/MM3 (4.0-11.0)
[2017-03-02 19:28] LABS: APTT (PATIENT) 30.1 SEC (24.3-30.1); PROTHROMBIN TIME - PATIENT 11.5 SEC (9.8-11.6)
[2017-03-02 19:31] LABS: CKMB LESS THAN 0.5 NG/ML (0.5-3.6)
--- NOTE | 2017-03-02 19:31 | PD ---
Physical Exam Date Seen by Provider: Mar 02, 2017 Time Seen by Provider: 19:15 Narrative Patient presents for fever. She has been seen here a couple times in the recent past for a kidney stone. She was told to return she developed a fever. She was actually seen this morning with a low-grade temperature and placed on Keflex.She states that she went home and took a nap. She awakened with shaking chills and a temperature of 103. She subsequently presented back as instructed. She denies any other reason for fever such as cold symptoms, cough , vomiting or diarrhea, urinary tract symptoms or symptoms. Her flank pain has resolved. She denies any known exposures. Denies rash. She denies a stiff neck. He denies unusual headache. Data Data Last Documented VS Vital Signs Date Time Temp Pulse Resp B/P Pulse Ox O2 Delivery O2 Flow Rate FiO2 03/02/17 17:56 105 16 105/59 98 Room Air 03/02/17 15:26 103.0 Orders Acetaminophen (Tylenol) (03/02/17 15:45) Electrocardiogram (03/02/17 17:20) Complete Blood Count With Diff (03/02/17 17:20) Comprehensive Metabolic Panel (03/02/17 17:20) Prothrombin Time / Inr (Pt) (03/02/17 17:20) Act Partial Throm Time (Ptt) (03/02/17 17:20) Lactic Acid Sepsis Protocol (03/02/17 17:20) Magnesium (Mg) (03/02/17 17:20) Ckmb (Isoenzyme) Profile (03/02/17 17:20) Urinalysis - C+S If Indicated (03/02/17 17:20) Influenzae A/B Antigen (03/02/17 17:20) Blood Culture (03/02/17 17:20) Chest, Single Ap (03/02/17 17:20) Blood Glucose (03/02/17 17:20) Ecg Monitoring (03/02/17 17:20) Iv Access Insert/Monitor (03/02/17 17:20) Oximetry (03/02/17 17:20) Oxygen Administration (03/02/17 17:20) Acetaminophen (Tylenol) (03/02/17 17:30) Ondansetron Inj (Zofran Inj) (03/02/17 17:30) Ct Abd/Pel W Iv Contrast(Rout) (03/02/17 17:20) Cefepime Inj (Maxipime Inj) (03/02/17 17:20) Vancomycin Inj (Vancomycin Inj) (03/02/17 17:20) Sodium Chlor 0.9% 1000 Ml Inj (Ns 1000 M (03/02/17 17:20) Sodium Chlor 0.9% 1000 Ml Inj (Ns 1000 M (03/02/17 17:20) Sodium Chlor 0.9% 1000 Ml Inj (Ns 1000 M (03/02/17 17:20) Ketorolac Inj (Toradol Inj) (03/02/17 17:30) Ed Urine Pregnancytest Poc (03/02/17 17:25) Urine Culture (03/02/17 17:38) Iohexol 350 Inj (Omnipaque 350 Inj) (03/02/17 18:44) CKMB (03/02/17 17:00) CKMB% (03/02/17 17:00) Labs Laboratory Tests Test 03/02/17 03/02/17 03/02/17 17:00 17:38 18:10 Sodium Level 137 MEQ/L Potassium Level 4.2 MEQ/L Chloride Level 105 MEQ/L Carbon Dioxide Level 26.7 MEQ/L Anion Gap 5 MEQ/L Blood Urea Nitrogen 7 MG/DL Creatinine 0.71 MG/DL Estimat Glomerular Filtration 98 ML/MIN Rate Random Glucose 82 MG/DL Calcium Level 9.2 MG/DL Magnesium Level 2.0 MG/DL Total Bilirubin 0.5 MG/DL Aspartate Amino Transf 44 U/L (AST/SGOT) Alanine Aminotransferase 41 U/L (ALT/SGPT) Alkaline Phosphatase 113 U/L Total Creatine Kinase 133 U/L Total Protein 7.6 GM/DL Albumin 3.7 GM/DL Urine Color LIGHT-YELLOW Urine Turbidity CLEAR Urine pH 7.0 Urine Specific [place] 1.005 Urine Protein NEG mg/dL Urine Glucose (UA) NEG mg/dL Urine Ketones NEG mg/dL Urine Occult Blood NEG Urine Nitrite NEG Urine Bilirubin NEG Urine Urobilinogen LESS THAN 2.0 MG/DL Urine Leukocyte Esterase NEG Urine WBC 1 /hpf Urine Squamous Epithelial 1 /hpf Cells Urine Bacteria OCC /hpf Microscopic Urinalysis Comment CATH-CULTURE IND Lactic Acid Level 0.8 mmol/L MDM Supervised Visit with JONAS: No Differential Diagnosis Differential diagnosis of fever includes but is not limited to viral illness, strep throat, otitis media, pneumonia, sepsis, UTI Narrative Course GENERAL: Awake and alert and in no acute distress. SKIN: Warm and dry. HEAD: Atraumatic. Normocephalic. EYES: Pupils equal and round. Extraocular movements are intact. ENT: No nasal bleeding or discharge. Mucous membranes pink and moist. Oropharynx has no erythema. NECK: Trachea midline. Neck is supple with no cervical lymphadenopathy. CARDIOVASCULAR: Regular rate and rhythm. Heart sounds are normal. RESPIRATORY: No accessory muscle use. Lungs are clear with full air movement throughout. GASTROINTESTINAL: Abdomen soft, non-tender, nondistended. MUSCULOSKELETAL: No obvious deformities. No edema. NEUROLOGICAL: Awake and alert. No obvious cranial nerve deficits. Motor grossly within normal limits. Normal speech. PSYCHIATRIC: Appropriate mood and affect; insight and judgment normal. Last Impressions Chest X-Ray 03/02/[id number] Signed Impressions: Service Date/Time: Thursday, March 02, 2017 17:25 - CONCLUSION: No acute disease. Alejandro Charlton MD Abdomen/Pelvis CT 03/02/171719 Signed Impressions: Service Date/Time: Thursday, March 02, 2017 18:44 - CONCLUSION: Interval passage of a left ureteral stone, however persistent mild left hydronephrosis. 2 small stones remain in the lower pole collecting system. No new acute findings. Alejandro Charlton MD Her UA is clear. Lactic acid level is normal. CBC has a white blood count of 9.7. Electrolytes are normal. This patient has no obvious source for fever. However, she is not toxic appearing. I think that she is stable for discharge to home. Diagnosis Primary Impression: Fever Qualified Code: R50.9 - Fever, unspecified fever cause Patient Instructions: Fever in Adults (ED), General Instructions Disposition: DISCHARGE HOME Condition: Stable Debra Markham MD Mar 02, 2017 19:31
[2017-03-02 21:27] VITALS: BP 115/81
--- NOTE | 2017-03-03 14:14 | EKG ---
Date Performed: 03/02/2017 Time Performed: 18:19:59 PTAGE: 26 years EKG: Sinus rhythm NORMAL ECG NO PREVIOUS TRACING DOCTOR: Ced Arroyo Interpretating Date/Time 03/03/2017 14:13:04
== END 2017-03-02 21:53 | disposition home or self-care (01) ==
LOC: NEPE 15:24
DX: R50.9 Fever, unspecified (principal); N20.2 Calculus of kidney with calculus of ureter
CPT/HCPCS: 71010; 74177; 80053; 81001; 82550; 82552; 83605; 83735; 84703; 85025; 85610; 85730; 87040; 87086; 87804; 93005; 96365; 96375; 99285; J0692; J1885; J2405; J3370; J7030; J7050; Q9967